=== PATIENT | female | born 1990 | race Caucasian/White ===

== ENCOUNTER 2022-06-23 23:32 | Emergency (ER) | payer OTHER ==
[~2022-06-23] VITALS: Ht 139.7 cm; Wt 55.0 kg
[2022-06-23 23:40] VITALS: BP 100/58
[2022-06-24 01:15] LABS: CLARITY URINE HAZY (CLEAR); COLOR URINE YELLOW (YELLOW)
[2022-06-24 01:16] LABS: KETONES URINE NEGATIVE (NEGATIVE); LEUKOCYTE ESTERASE URINE NEGATIVE (NEGATIVE); NITRITE URINE NEGATIVE (NEGATIVE); OCCULT BLOOD URINE NEGATIVE (NEGATIVE); PROTEIN URINE TRACE (NEGATIVE); UROBILINOGEN URINE 0.2 E.U./dL (0.2-1.0)
[2022-06-24] MEDS: ACETAMINOPHEN 325MG TABLET PO PRN ×2 (01:23→02:25)
[2022-06-24 01:36] LABS: HEMOGLOBIN. 13.1 g/dL (12.0-16.0); MEAN CORPUSCULAR HEMOGLOBIN 30.2 pg (28.0-32.0); MEAN PLATELET VOLUME 5.8 fl (7.4-10.4); PLATELET 326 x1000/uL (130-400); RED BLOOD CELL COUNT 4.33 mill/uL (4.2-5.4); RED CELL DISTRIBUTION WIDTH 14.2 % (11.6-14.6)
[2022-06-24 01:40] LABS: CHLORIDE 103 mEq/L (98-107)
[2022-06-24 02:04] LABS: B-HCG QUANTITATIVE 106050 mIU/mL (<3)
[2022-06-24 05:20] LABS: PLATELET ESTIMATE NORMAL
== END 2022-06-24 09:36 | disposition home or self-care (01) ==
LOC: ER 23:32
DX: O26.891 Other specified pregnancy related conditions, first trimester (principal); Z3A.09 9 weeks gestation of pregnancy
CPT/HCPCS: 36415; 76801; 80053; 81003; 81025; 84702; 85025; 86850; 86900; 99284